=== PATIENT | male | born 1945 | race Caucasian/White ===

== ENCOUNTER 2019-04-07 10:50 | Outpatient (CLI) | payer OTHER ==
[~2019-04-07 10:50] MED LIST: LEVAQUIN500 MG PO; PERCOCET 10/3251 TAB PO; TAMS0.4C PO
== END 2019-04-07 14:28 | disposition home or self-care (01) ==
LOC: LAB 10:50
DX: F32.89 Other specified depressive episodes (principal); R53.83 Other fatigue; R60.0 Localized edema; N40.1 Benign prostatic hyperplasia with lower urinary tract symptoms

== ENCOUNTER → 2019-04-08 07:31 | Outpatient (CLI) | payer OTHER | END | disposition home or self-care (01) | LOC: LAB 07:31 | DX: F32.89 Other specified depressive episodes (principal); R53.83 Other fatigue; R60.0 Localized edema; N40.1 Benign prostatic hyperplasia with lower urinary tract symptoms ==

== ENCOUNTER 2019-04-22 07:38 | Outpatient (CLI) | payer OTHER | END 2019-04-22 07:54 | disposition home or self-care (01) | LOC: NUCLEAR 07:38 | DX: R60.0 Localized edema (principal) ==

== ENCOUNTER 2019-04-24 07:46 | Outpatient (CLI) | payer OTHER | END 2019-04-24 08:01 | disposition home or self-care (01) | LOC: NUCLEAR 07:46 | DX: R60.0 Localized edema (principal); N40.1 Benign prostatic hyperplasia with lower urinary tract symptoms; I73.9 Peripheral vascular disease, unspecified; R53.83 Other fatigue; F32.9 Major depressive disorder, single episode, unspecified; R07.89 Other chest pain ==

== ENCOUNTER 2019-09-12 10:19 | Emergency (ER) | payer OTHER ==
[~2019-09-12] VITALS: Ht 177.8 cm; Wt 79.8 kg
[2019-09-12] MEDS ORDERED: COZAAR50 MG PO (10:38)
== END 2019-09-12 17:26 | disposition home or self-care (01) ==
LOC: ER 10:19 → CPU-OBS 10:40 → ER 10:40
DX: R00.2 Palpitations (principal); F41.8 Other specified anxiety disorders

== ENCOUNTER 2021-02-08 19:55 | Emergency (ER) | payer OTHER ==
[~2021-02-08] VITALS: Ht 175.3 cm; Wt 77.1 kg
[~2021-02-08 19:55] MED LIST changes: +COZAAR50 MG PO
[2021-02-09] MEDS ORDERED: MECLIZINE HCL25 MG PO (00:42)
[2021-02-09] MEDS ORDERED: KETO10TA2 PO (00:42)
[2021-02-09] MEDS ORDERED: ORPHENADRINE C100 MG PO (00:42)
== END 2021-02-09 00:46 | disposition home or self-care (01) ==
LOC: ER 19:55
DX: S00.31XA Abrasion of nose, initial encounter (principal); S80.212A Abrasion, left knee, initial encounter; S80.211A Abrasion, right knee, initial encounter; M54.2 Cervicalgia; R42 Dizziness and giddiness; M17.0 Bilateral primary osteoarthritis of knee; M16.12 Unilateral primary osteoarthritis, left hip; M47.892 Other spondylosis, cervical region; W18.09XA Striking against other object with subsequent fall, initial encounter; Y93.89 Activity, other specified; Y92.018 Other place in single-family (private) house as the place of occurrence of the external cause; Y99.8 Other external cause status; Z96.641 Presence of right artificial hip joint

== ENCOUNTER 2021-10-29 07:59 | Emergency (ER) | payer OTHER ==
[~2021-10-29] VITALS: Ht 177.8 cm; Wt 72.6 kg
[~2021-10-29 07:59] MED LIST changes: +KETO10TA2 PO; +MECLIZINE HCL25 MG PO; +ORPHENADRINE C100 MG PO
== END 2021-10-29 09:23 | disposition home or self-care (01) ==
LOC: ER 07:59
DX: M47.812 Spondylosis without myelopathy or radiculopathy, cervical region (principal)

== ENCOUNTER 2022-04-27 16:08 | Emergency (ER) | payer OTHER | END 2022-04-27 19:37 | disposition home or self-care (01) | LOC: ER 16:08 | DX: S00.93XA Contusion of unspecified part of head, initial encounter (principal); S20.229A Contusion of unspecified back wall of thorax, initial encounter; W18.30XA Fall on same level, unspecified, initial encounter; Y93.9 Activity, unspecified; Y92.89 Other specified places as the place of occurrence of the external cause; Y99.9 Unspecified external cause status; Z20.822 Contact with and (suspected) exposure to COVID-19 ==

== ENCOUNTER → 2022-07-20 | Outpatient (CLI) | payer OTHER ==
[~2022-07-20] MED LIST changes: +CITALOPRAM20 MG/10 M PO
== END | disposition home or self-care (01) ==
LOC: RAD 11:36
DX: M99.01 Segmental and somatic dysfunction of cervical region (principal); M99.02 Segmental and somatic dysfunction of thoracic region; M99.03 Segmental and somatic dysfunction of lumbar region; M99.05 Segmental and somatic dysfunction of pelvic region

== ENCOUNTER 2022-08-18 12:49 | Emergency (ER) | payer OTHER ==
[~2022-08-18] VITALS: Ht 177.8 cm; Wt 77.6 kg
== END 2022-08-18 15:25 ==
LOC: ER 12:49
DX: M19.90 Unspecified osteoarthritis, unspecified site (principal); M25.562 Pain in left knee

== ENCOUNTER 2023-09-17 09:18 | Outpatient (CLI) | payer OTHER | END 2023-09-17 09:34 | disposition home or self-care (01) | LOC: MRI 09:18 | DX: M54.17 Radiculopathy, lumbosacral region (principal); M54.2 Cervicalgia; M54.59 Other low back pain | CPT/HCPCS: 72141; 72148 ==

== ENCOUNTER 2024-03-09 08:23 | Outpatient (CLI) | payer OTHER | END 2024-03-09 08:33 | disposition home or self-care (01) | LOC: TOM 08:23 | PROVIDERS: ATTEND Internal Medicine Gastroenterology | DX: R19.5 Other fecal abnormalities (principal) ==

== ENCOUNTER 2024-05-14 12:56 | Outpatient (CLI) | payer OTHER | END 2024-05-14 13:05 | disposition home or self-care (01) | LOC: RAD 12:56 | PROVIDERS: ATTEND General Practice | DX: M15.9 Polyosteoarthritis, unspecified (principal) ==

== ENCOUNTER 2025-02-10 10:32 | Emergency (ER) | payer OTHER ==
[~2025-02-10] VITALS: Ht 167.6 cm; Wt 74.4 kg
[2025-02-10] MEDS ORDERED: KETOROLAC TROMETHAMINE 30 MG VIAL IV STA (11:51)
[2025-02-10] MEDS ORDERED: ACETAMINOPHEN 500 MG GEL..CAP PO STA (11:52)
[2025-02-10] MEDS ORDERED: DEXAMETHASONE SODIUM PHOSPHATE 4 MG/ML VIAL IV STA (11:52)
[2025-02-10] MEDS ORDERED: ACETAMINOPHEN WITH CODEINE 1 UDTAB TABLET PO STA (11:53)
[2025-02-10] MEDS ORDERED: KETOROLAC TROMETHAMINE 30 MG VIAL ONE (12:39)
[2025-02-10] MEDS ORDERED: DEXAMETHASONE SODIUM PHOSPHATE 4 MG/ML VIAL ONE (12:39)
[2025-02-10] MEDS ORDERED: ACETAMINOPHEN 500 MG GEL..CAP PO ONE (12:39)
== END 2025-02-10 16:50 | disposition home or self-care (01) ==
LOC: ER 10:32
DX: M13.0 Polyarthritis, unspecified (principal); I10 Essential (primary) hypertension
CPT/HCPCS: 96365; 99282; J1100; J1885

== ENCOUNTER 2025-07-28 11:56 | Emergency (ER) | payer OTHER ==
[~2025-07-28] VITALS: Ht 165.1 cm; Wt 77.1 kg
[2025-07-28 13:03] VITALS: BP 150/87; O2SAT 98
[2025-07-28] MEDS ORDERED: KETOROLAC TROMETHAMINE 30 MG VIAL IM STA (14:05)
[2025-07-28] MEDS ORDERED: KETOROLAC TROMETHAMINE 30 MG VIAL ONE (14:06)
== END 2025-07-28 22:23 | disposition home or self-care (01) ==
LOC: ER 11:56
DX: M25.559 Pain in unspecified hip (principal)
CPT/HCPCS: 73501; 96372; 99283; J1885